=== PATIENT | male | born 1940 | race Caucasian/White ===

== ENCOUNTER 2024-07-28 00:14 | Emergency (ER) | payer MEDICARE ==
[~2024-07-28] VITALS: Ht 167.6 cm; Wt 77.0 kg
[2024-07-28 00:35] VITALS: O2SAT 99
[2024-07-28 00:51] VITALS: BP 144/77; PULSE 100; RESP 18; TEMP 97.9; O2SAT 99
== END 2024-07-28 07:11 | disposition home or self-care (01) ==
LOC: ER 00:14
DX: T83.9XXA Unspecified complication of genitourinary prosthetic device, implant and graft, initial encounter (principal)
CPT/HCPCS: 51702; 99284